=== PATIENT | male | born 1995 | race Caucasian/White ===

== ENCOUNTER 2017-05-20 20:33 | Emergency (ER) | payer OTHER ==
[2017-05-20 20:42] VITALS: BP 177/87; PULSE 110; RESP 20; TEMP 98.2
--- NOTE | 2017-05-20 21:02 | ED ---
ENT HPI - General Chief complaint: ENT Stated complaint: Esophagel Foreign Body Time Seen by Provider: 05/20/17 20:45 Source: patient, EMS Mode of arrival: EMS Limitations: no limitations - History of Present Illness Initial comments: 21-year-old male patient presents to the emergency department today for evaluation of a foreign body sensation in his throat. Patient states proximally 10 days ago he swallowed and Palak-[place] cold gel. He states a discuss tetanus throat. He states after that. He had sore scratchy throat and was having difficulty swallowing. He did present to urgent care where they set him up to have a scope done which is scheduled for next week. Patient states that since that time he's been having difficulty swallowing both food and fluids. States that today he was eating some Negrito and Ikes when they became lodged in his throat. He states he could not breath and his whole body went tingly. Patient states he was able to clear the obstruction however still feels like they are seconds throat. He states he did try to drink some water however it caused him to feel like he wanted to vomit and made him burp. He states that the area just below his Ezra's apple as where he feels the blockage. Denies any chest pain or any current shortness of breath. Patient denies any recent rash, fever, chills, abdominal pain, nausea, vomiting, diarrhea, constipation, back pain, numbness, tingling, dizziness, weakness, hematuria, dysuria, urinary urgency, urinary frequency, headache, visual changes , or any other complaints. - Related Data Home Medications Medication Instructions Recorded Confirmed No Known Home Medications [No 05/20/17 05/20/17 Known Home Medications] Allergies Allergy/AdvReac Type Severity Reaction Status Date / Time No Known Allergies Allergy Verified 05/20/17 21:02 Review of Systems ROS Statement: Those systems with pertinent positive or pertinent negative responses have been documented in the HPI. ROS Other: All systems not noted in ROS Statement are negative. Past Medical History Past Medical History: No Reported History History of Any Multi-Drug Resistant Organisms: None Reported Past Surgical History: No Surgical Hx Reported Past Psychological History: No Psychological Hx Reported Smoking Status: Current some day smoker Past Alcohol Use History: Occasional Past Drug Use History: None Reported General Exam Limitations: no limitations General appearance: alert, in no apparent distress, other (This is a well- developed, well-nourished adult male patient in no acute distress. Vital signs upon presentation are temperature 98.2F, pulse 110, respirations 20, blood pressure 177/87, pulse ox 97% on room air.) Eye exam: Present: normal appearance, PERRL, EOMI. Absent: scleral icterus, conjunctival injection, periorbital swelling ENT exam: Present: normal exam, normal oropharynx, mucous membranes moist Neck exam: Present: normal inspection, full ROM. Absent: tenderness, meningismus, lymphadenopathy Respiratory exam: Present: normal lung sounds bilaterally. Absent: respiratory distress, wheezes, rales, rhonchi, stridor Cardiovascular Exam: Present: regular rate, normal rhythm, normal heart sounds. Absent: systolic murmur, diastolic murmur, rubs, gallop, clicks GI/Abdominal exam: Present: soft, normal bowel sounds. Absent: distended, tenderness, guarding, rebound, rigid Neurological exam: Present: alert, oriented X3, CN II-XII intact Psychiatric exam: Present: normal affect, normal mood Skin exam: Present: warm, dry, intact, normal color. Absent: rash Course Vital Signs 05/20/17 20:35 Temperature 98.2 F Pulse Rate 110 H Respiratory 20 Rate Blood Pressure 177/87 O2 Sat by Pulse 97 Oximetry Medical Decision Making - Medical Decision Making 21-year-old male patient presents to the emergency department today for evaluation of foreign body sensations in the esophagus. Physical examination is unremarkable. Patient is breathing without difficulty. We did perform x- ray of the soft tissues of the neck which showed no evidence of abnormalities in the cervical soft tissues. Patient is drinking water and keeping it down without difficulty. He does have an appointment for a upper GI scope in 3-4 days. He is urged to keep this point. He was educated regarding diet modifications to liquids and very soft foods. He is instructed to return here immediately for any new, worsening, or concerning symptoms. He verbalizes understanding and agrees this plan. - Radiology Data Radiology results: report reviewed, image reviewed 2 views of the soft tissue of the neck shows epiglottis is normal. Prevertebral soft tissues appear normal. I see no sign of a foreign body. Subglottic trachea appears normal. Tonsils and adenoids appear normal. Impression by Dr. Fang shows normal cervical soft tissue exam. Disposition Clinical Impression: Sensation of foreign body in esophagus Disposition: HOME SELF-CARE Condition: Good Instructions: Esophageal Stricture (ED), Dysphagia (ED) Additional Instructions: Eat very soft foods or liquids only until your scope is completed. Do small bites at a time. Follow up with GI specialist as you have planned. Follow up with her primary care physician for recheck in 1-2 days. Return here immediately for any new, worsening, or concerning symptoms. Referrals: None,Stated [Primary Care Provider] - 1-2 days Time of Disposition: 21:35
--- NOTE | 2017-05-20 21:08 | XR ---
EXAMINATION TYPE: XR soft tissue neck DATE OF EXAM: 05/20/2017 COMPARISON: NONE HISTORY: Choking sensation TECHNIQUE: 2 views FINDINGS: Epiglottis is normal. Prevertebral soft tissues appear normal. I see no sign of a foreign b mackenzie. Subglottic trachea appears normal. Tonsils and adenoids appear normal. IMPRESSION: Normal cervical soft tissue exam.
== END 2017-05-20 21:44 | disposition home or self-care (01) ==
LOC: EC 20:33
DX: R19.8 Other specified symptoms and signs involving the digestive system and abdomen (principal); F17.200 Nicotine dependence, unspecified, uncomplicated
CPT/HCPCS: 70360; 99284

== ENCOUNTER 2017-05-26 09:27 | Day surgery (SDC) | payer OTHER ==
[2017-05-25 09:25] VITALS: BMI 33.2
[~2017-05-26 09:27] MED LIST: LACTATED RINGERS 1,000 ML IV SCH
[2017-05-26 09:48] VITALS: RESP 18; TEMP 97.9
[2017-05-26] MEDS ORDERED: LIDOCAINE 1% 20 ML VIAL (10MG/ML) FOR IV START INTRADERMA ONE (10:03)
[2017-05-26] MEDS ORDERED: PROPOFOL 10 MG/ML 20 ML VIAL IV ONE (10:16)
[2017-05-26] MEDS ORDERED: LIDOCAINE 1% INJ 10MG/ML (20 ML MDV) ONE (10:16)
--- NOTE | 2017-05-26 10:31 | P.PCN ---
Date of Procedure: 05/26/17 Procedure(s) Performed: BRIEF HISTORY: Patient is a 21-year-old, tacho olson, scheduled for an upper endoscopy as a part of evaluation of acute dysphagia for the last 2 weeks ' duration. He took Palak-[place] pills and since then he is having throat discomfort and throat irritation to exit that he is not able to eat solid food. He is hence scheduled for an upper endoscopy to evaluate further PROCEDURE PERFORMED: Esophagogastroduodenoscopy with biopsy PREOPERATIVE DIAGNOSIS: Acute dysphagia. IV sedation per anesthesia. PROCEDURE: After informed consent was obtained, the patient was brought into the endoscopy unit. IV sedation was administered by Anesthesia under continuous monitoring. Initially the Olympus GIF-140 video endoscope was inserted into the mouth. Esophagus intubated without any difficulty. It was gradually advanced into the stomach and duodenum and carefully examined. The bulb and the second part of the duodenum appeared normal. The scope at this time was withdrawn to the stomach, adequately insufflated with air, and upon careful examination, mucosa of the antrum, body, cardia and the fundus appeared normal. The scope was then withdrawn into the esophagus. Small hiatal hernia noted. The GE junction was located at 39 cm from the incisors. In the distal esophagus there was a 2- 3 mm polyp that was biopsied. The rest of the esophagus appeared normal. There were no erosions or ulcerations seen. The proximal cervical esophagus was carefully examined and appeared normal with no evidence of esophageal stricture, esophagitis or any foreign body noted. Biopsies were done from the midesophagus and the patient tolerated the procedure well. IMPRESSION: 1. 2- 3 mm polyp in the distal esophagus status post biopsy. 2. Normal proximal cervical esophagus with no evidence of esophageal foreign body, esophageal stricture or esophagitis. RECOMMENDATIONS: The findings of this examination were discussed with the patient as well as his family. He was advised to follow with the biopsy results. If he still has persistent symptoms and dysphagia was advised to follow up in office in 2-3 weeks..
[2017-05-26 11:01] VITALS: BP 164/92; PULSE 94
== END 2017-05-26 11:22 | disposition home or self-care (01) ==
LOC: ORWHC2ENDO 09:27
PROVIDERS: ATTEND Internal Medicine Gastroenterology
DX: K21.0 Gastro-esophageal reflux disease with esophagitis (principal); K22.8 Other specified diseases of esophagus; K44.9 Diaphragmatic hernia without obstruction or gangrene; F17.200 Nicotine dependence, unspecified, uncomplicated
CPT/HCPCS: 88305; 43239; J2001; J2704

== ENCOUNTER 2017-05-30 18:06 | Emergency (ER) | payer OTHER ==
[2017-05-30] MEDS ORDERED: LORazepam 1 MG TAB PO STA (18:45)
--- NOTE | 2017-05-30 19:00 | ED ---
General Adult HPI - General Chief complaint: Chest Pain Stated complaint: Arm numbness & Chest pain Time Seen by Provider: 05/30/17 18:39 Source: patient, RN notes reviewed Mode of arrival: ambulatory Limitations: no limitations - History of Present Illness Initial comments: 21-year-old male presents to the emergency department stating that yesterday he just had this odd feeling in both his arms and legs had numbness and tingling. He states that he had a little bit of chest pain during this as well. He states that about 2 weeks ago they did scope of his throat due to the fact he thought he had a pill stuck in it. They state that since then he has on-and- off episodes similar to this. He does not know if it's anxiety. He states his chest pain has since resolved. He denies any fever chills cough cold like symptoms. He states that he can feel everything touch and he can move everything and just has this odd sensation. Patient does appear anxious in the room. Family states that they did recently have a definite family as well. Patient denies any recent fever, chills, shortness of breath, back pain, abdominal pain, nausea vomiting, dysuria or hematuria, constipation or diarrhea , headaches or visual changes, or any other current symptoms. - Related Data Home Medications Medication Instructions Recorded Confirmed No Known Home Medications [No 05/20/17 05/30/17 Known Home Medications] Allergies Allergy/AdvReac Type Severity Reaction Status Date / Time No Known Allergies Allergy Verified 05/30/17 19:07 Review of Systems ROS Statement: Those systems with pertinent positive or pertinent negative responses have been documented in the HPI. ROS Other: All systems not noted in ROS Statement are negative. Past Medical History Past Medical History: Hypertension Additional Past Medical History / Comment(s): MOTHER STATES HIGH BLOOD PRESSURE BUT NO MEDICATIONS. , HAVING DIFFICULTY SWALLOWING - SEEN IN ER 05/20/17. History of Any Multi-Drug Resistant Organisms: None Reported Past Surgical History: No Surgical Hx Reported Additional Past Anesthesia/Blood Transfusion Reaction / Comment(s): NO ANESTHESIA HX. Past Psychological History: No Psychological Hx Reported Smoking Status: Current some day smoker Past Alcohol Use History: Occasional Past Drug Use History: None Reported - Past Family History Mother Family Medical History: No Reported History General Exam - General Exam Comments Initial Comments: General: The patient is awake and alert, anxious, and does not appear acutely ill. Eye: Pupils are equal, round and reactive to light, extra-ocular movements are intact; there is normal conjunctiva bilaterally. No signs of icterus. Ears, nose, mouth and throat: There are moist mucous membranes. Neck: The neck is supple, there is no tenderness. Cardiovascular: There is a regular rate and rhythm. No murmur, rub or gallop is appreciated. Respiratory: Lungs are clear to auscultation, respirations are non-labored, breath sounds are equal. No wheezes, stridor, rales, or rhonchi. Gastrointestinal: Soft, non-distended, non-tender abdomen without masses or organomegaly noted. There is no rebound or guarding present. No CVA tenderness. Bowel sounds are unremarkable. Back: There is no tenderness to palpation in the midline. There is no obvious deformity. No rashes noted. Musculoskeletal: Normal ROM, no tenderness, There is no pedal edema. There is no calf tenderness or swelling. Sensation intact. Pulses equal bilaterally 2+. Neurological: CN II-XII intact, There are no obvious motor or sensory deficits. Coordination appears grossly intact. Speech is normal. Skin: Skin is warm and dry and no rashes or lesions are noted. Psychiatric: Cooperative, appropriate mood & affect, normal judgment. Limitations: no limitations Course Vital Signs 05/30/17 05/30/17 18:24 19:05 Temperature 100.2 F H 98.6 F Pulse Rate 117 H 102 H Respiratory 20 16 Rate Blood Pressure 138/89 156/81 O2 Sat by Pulse 100 98 Oximetry EKG Findings - EKG Comments: EKG Findings:: Sinus tachycardia 103 bpm, normal axis, no atopy, no S-T depressions or elevations, Medical Decision Making - Medical Decision Making 21-year-old male presents to the emergency Department chief complaint of paresthesia, anxiety, chest pain yesterday. This time EKG and chest x-ray reviewed and negative. Patient is having some improvement of symptoms with medication. This time we discussed anxiety we also discussed the could be other etiologies and the need to follow-up with their family care doctor. Patient family stated the Berry management this plan. All questions have been answered. At this time the patient will be discharged. - Radiology Data Radiology results: report reviewed, image reviewed Disposition Clinical Impression: Anxiety, Atypical chest pain, Paresthesia Disposition: HOME SELF-CARE Condition: Stable Instructions: Anxiety (ED) Additional Instructions: Please use medication as discussed. Please follow up with family doctor if symptoms have not improved over the next two days. Please return to the emergency room if your symptoms increase or worsen or for any other concerns. Referrals: Phyllis Paris MD [Primary Care Provider] - 1-2 days Time of Disposition: 19:59
[2017-05-30 19:08] VITALS: TEMP 98.6
--- NOTE | 2017-05-30 19:26 | XR ---
EXAMINATION: XR chest 2V DATE AND TIME: 05/30/2017 7:19 PM ORDERING PROVIDER: Lesly Reyes CLINICAL INDICATION: cough; chest pain with bilateral arm numbness and panic attacks TECHNIQUE: PA and lateral COMPARISON: None. DESCRIPTION: The lungs are clear. The pleural spaces are negative. The cardiac silhouette is not enlarged. The mediastinal and pleural silhouettes are unremarkable. The skeletal structures are intact without focal findings. The soft tissues are unremarkable. IMPRESSION: NO ACUTE PROCESS.
[2017-05-30 20:28] VITALS: BP 155/79; PULSE 92; RESP 18
== END 2017-05-30 20:28 | disposition home or self-care (01) ==
LOC: EC 18:06
DX: F41.9 Anxiety disorder, unspecified (principal); R20.2 Paresthesia of skin; R07.89 Other chest pain; F17.200 Nicotine dependence, unspecified, uncomplicated
CPT/HCPCS: 71046; 93005; 99285

== ENCOUNTER → 2017-06-22 | Outpatient (CLI) | payer OTHER ==
--- NOTE | 2017-06-22 22:03 | MR ---
EXAMINATION TYPE: MR brain wo con DATE OF EXAM: 06/22/2017 9:57 PM COMPARISON: NONE HISTORY: Difficulty swallowing, tremors Multiplanar and multispin-echo imaging of the brain was performed . The ventricles, basal cisterns and sulci overlying the cerebral convexities are within normal limits. There is no evidence for midline shift or mass effect. Acute intracranial hemorrhage or extra-axial collection is not evident. The brain parenchyma reveals no abnormal increased signal. No acute edema is identified. Chronic paranasal sinusitis. Mastoids are well-aerated. IMPRESSION: Unremarkable MRI of the brain. Chronic paranasal sinusitis.
== END | disposition home or self-care (01) ==
LOC: RADMRIMAIN 21:33
PROVIDERS: ATTEND Family Medicine
DX: R25.1 Tremor, unspecified (principal)
CPT/HCPCS: 70551

== ENCOUNTER 2018-07-12 07:17 | Emergency (ER) | payer OTHER ==
[2018-07-12] MEDS ORDERED: SODIUM CHLORIDE 0.9% 500 ML 500 ML IV STA (07:43)
[2018-07-12] MEDS ORDERED: ONDANSETRON 4 MG/2 ML VIAL IVP STA (07:43)
[2018-07-12 08:02] LABS: Basophils % (A) 0 %; Eosinophils # (A) 0.3 k/uL (0-0.7); Eosinophils % (A) 3 %; HCT 43.1 % (39.0-53.0); HGB 14.4 gm/dL (13.0-17.5); Lymphocytes # (A) 1.7 k/uL (1.0-4.8); Lymphocytes % (A) 18 %; MCHC 33.4 g/dL (31.0-37.0); MCV 89.9 fL (80.0-100.0); Mean Platelet Volume 7.5; Monocytes # (A) 0.4 k/uL (0-1.0); Monocytes % (A) 5 %; Neutrophils % (A) 74 %; Platelet Count 214 k/uL (150-450); RDW 13.1 % (11.5-15.5); WBC 9.5 k/uL (3.8-10.6)
--- NOTE | 2018-07-12 08:02 | ED ---
General Adult HPI - General Chief complaint: Abdominal Pain Stated complaint: Abd Pain Rt Side Time Seen by Provider: 07/12/18 07:30 Source: patient, RN notes reviewed Mode of arrival: ambulatory - History of Present Illness Initial comments: This is a 22-year-old male who presents emergency Department complaining of right upper quadrant abdominal pain that started at 5 AM. In the past the patient stated he is been told he has a gallbladder problem but he has never followed up for. Patient states he is nauseated but has not vomited. Patient denies any fever or chills. Patient denies any radiation of the pain. Patient denies any chest pain difficulty breathing first breath. Patient denies any diarrhea. - Related Data Previous Rx's Medication Instructions Recorded Ibuprofen [Motrin] 600 mg PO Q6HR PRN #20 tab 07/12/18 Allergies Allergy/AdvReac Type Severity Reaction Status Date / Time No Known Allergies Allergy Verified 07/12/18 07:52 Review of Systems ROS Statement: Those systems with pertinent positive or pertinent negative responses have been documented in the HPI. ROS Other: All systems not noted in ROS Statement are negative. Past Medical History Past Medical History: Hypertension Additional Past Medical History / Comment(s): MOTHER STATES HIGH BLOOD PRESSURE BUT NO MEDICATIONS. , HAVING DIFFICULTY SWALLOWING - SEEN IN ER 05/20/17. History of Any Multi-Drug Resistant Organisms: None Reported Past Surgical History: No Surgical Hx Reported Additional Past Anesthesia/Blood Transfusion Reaction / Comment(s): NO ANESTHESIA HX. Past Psychological History: No Psychological Hx Reported Smoking Status: Current some day smoker Past Alcohol Use History: Occasional Past Drug Use History: Marijuana - Past Family History Mother Family Medical History: No Reported History General Exam - General Exam Comments Initial Comments: GENERAL: Patient is well-developed and well-nourished. Patient is nontoxic and well- hydrated and is in mild distress. ENT: Neck is soft and supple. No significant lymphadenopathy is noted. Oropharynx is clear. Moist mucous membranes. Neck has full range of motion without eliciting any pain. EYES: The sclera were anicteric and conjunctiva were pink and moist. Extraocular movements were intact and pupils were equal round and reactive to light. Eyelids were unremarkable. PULMONARY: Unlabored respirations. Good breath sounds bilaterally. No audible rales rhonchi or wheezing was noted. CARDIOVASCULAR: There is a regular rate and rhythm without any murmurs gallops or rubs. ABDOMEN: Patient has right upper quadrant abdominal pain but no rebound. SKIN: Skin is clear with no lesions or rashes and otherwise unremarkable. NEUROLOGIC: Patient is alert and oriented x3. Cranial nerves II through XII are grossly intact. Motor and sensory are also intact. Normal speech, volume and content. Symmetrical smile. MUSCULOSKELETAL: Normal extremities with adequate strength and full range of motion. No lower extremity swelling or edema. No calf tenderness. LYMPHATICS: No significant lymphadenopathy is noted PSYCHIATRIC: Normal psychiatric evaluation. Course Vital Signs 07/12/18 07:30 Temperature 97.9 F Pulse Rate 78 Respiratory 22 Rate Blood Pressure 138/84 O2 Sat by Pulse 100 Oximetry Medical Decision Making - Medical Decision Making Back to reevaluate the patient he was no longer nauseated and his right upper quadrant pain was very minimal on palpation only. Patient states sitting here he has no pain. Patient states to me that he thinks he might of pulled a muscle yesterday. - Lab Data Result diagrams: 07/12/18 07:50 07/12/18 07:50 Lab Results 07/12/18 07/12/18 Range/Units 07:50 07:50 WBC 9.5 (3.8-10.6) k/uL RBC 4.80 (4.30-5.90) m/uL Hgb 14.4 (13.0-17.5) gm/dL Hct 43.1 (39.0-53.0) % MCV 89.9 (80.0-100.0) fL MCH 30.0 (25.0-35.0) pg MCHC 33.4 (31.0-37.0) g/dL RDW 13.1 (11.5-15.5) % Plt Count 214 (150-450) k/uL Neutrophils % 74 % Lymphocytes % 18 % Monocytes % 5 % Eosinophils % 3 % Basophils % 0 % Neutrophils # 7.0 (1.3-7.7) k/uL Lymphocytes # 1.7 (1.0-4.8) k/uL Monocytes # 0.4 (0-1.0) k/uL Eosinophils # 0.3 (0-0.7) k/uL Basophils # 0.0 (0-0.2) k/uL Sodium 142 (137-145) mmol/L Potassium 4.1 (3.5-5.1) mmol/L Chloride 105 (98-107) mmol/L Carbon Dioxide 24 (22-30) mmol/L Anion Gap 13 mmol/L BUN 9 (9-20) mg/dL Creatinine 0.91 (0.66-1.25) mg/dL Est GFR (CKD-EPI)AfAm >90 (>60 ml/min/1.73 sqM) Est GFR (CKD-EPI)NonAf >90 (>60 ml/min/1.73 sqM) Glucose 109 H (74-99) mg/dL Calcium 10.0 (8.4-10.2) mg/dL Total Bilirubin 0.6 (0.2-1.3) mg/dL AST 33 (17-59) U/L ALT 57 (21-72) U/L Alkaline Phosphatase 45 (38-126) U/L Total Protein 7.9 (6.3-8.2) g/dL Albumin 5.1 H (3.5-5.0) g/dL Amylase 46 (30-110) U/L Lipase 78 (23-300) U/L Disposition Clinical Impression: Abdominal pain Disposition: HOME SELF-CARE Instructions (If sedation given, give patient instructions): Abdominal Pain (ED) Prescriptions: Ibuprofen [Motrin] 600 mg PO Q6HR PRN #20 tab PRN Reason: For pain Is patient prescribed a controlled substance at d/c from ED?: No Referrals: Phyllis Paris MD [Primary Care Provider] - 1-2 days Time of Disposition: 09:09
[2018-07-12 08:11] LABS: ALT 57 U/L (21-72); AST 33 U/L (17-59); Albumin 5.1 g/dL (3.5-5.0); Alkaline Phosphatase 45 U/L (38-126); Amylase 46 U/L (30-110); Anion Gap 13 mmol/L; Blood Urea Nitrogen 9 mg/dL (9-20); Carbon Dioxide 24 mmol/L (22-30); Chloride 105 mmol/L (98-107); Glucose 109 mg/dL (74-99); Lipase 78 U/L (23-300); Potassium 4.1 mmol/L (3.5-5.1); Sodium 142 mmol/L (137-145); Total Bilirubin 0.6 mg/dL (0.2-1.3); Total Protein 7.9 g/dL (6.3-8.2)
--- NOTE | 2018-07-12 08:49 | US ---
EXAMINATION TYPE: US gallbladder DATE OF EXAM: 07/12/2018 COMPARISON: NONE CLINICAL HISTORY: Pain. RUQ pain, NPO EXAM MEASUREMENTS: Liver Length: 17.4 cm Gallbladder Wall: cm CBD: 0.5 cm Right Kidney: 11.6 x 4.9 x 5.4 cm Pancreas: body and tail not well visualized due to overlying bowel gas Liver: wnl Gallbladder: wnl, fold seen LLD Evidence for sonographic Real's sign: neg CBD: limited visualization due to overlying bowel gas Right Kidney: Medial anechoic lesion seen at hilum - 1.0 x 1.2 cm IMPRESSION: 1. Parapelvic cyst right kidney.
[2018-07-12] MEDS ORDERED: KETOROLAC 60 MG/2 ML VIAL IVP STA (09:08)
[2018-07-12 10:06] VITALS: BP 139/85; PULSE 71; RESP 18; TEMP 97
== END 2018-07-12 10:06 | disposition home or self-care (01) ==
LOC: EC 07:17
DX: R10.11 Right upper quadrant pain (principal); R11.0 Nausea; F17.200 Nicotine dependence, unspecified, uncomplicated
CPT/HCPCS: 36415; 80053; 82150; 83690; 85025; 76705; 99284; 96374; 96375; 96361; J2405; J1885

== ENCOUNTER 2019-09-29 23:21 | Emergency (ER) | payer OTHER ==
[2019-09-29 23:37] VITALS: BP 130/80; PULSE 90; RESP 16; TEMP 99.1
[2019-09-30] MEDS ORDERED: SULFAMETH-TMP DS STARTER PACK 2 TAB BTL PO STA (00:16)
[2019-09-30] MEDS ORDERED: IBUPROFEN 600 MG STARTER PACK 4 TAB BTL PO STA (00:17)
[2019-09-30] MEDS ORDERED: ACET/COD 300 MG/30 MG STARTER PACK 6 TAB BTL PO STA (00:17)
--- NOTE | 2019-09-30 00:18 | ED ---
Wound/Laceration HPI - General Chief Complaint: Wound/Laceration Stated Complaint: bleeding Time Seen by Provider: 09/29/19 23:41 Source: patient Mode of arrival: ambulatory Limitations: no limitations - History of Present Illness Initial Comments: 23-year-old male patient presents to the emergency department today for evaluation of pain and bleeding from a wound on his buttocks. Patient states he's had the area for the last couple of weeks. States that today he noticed blood coming from it. States the area is tender to touch. Denies any purulent drainage. Denies fever or chills. Denies any difficulty with bowel movements or urination. Denies history of diabetes or IV drug use. Patient denies any recent rash, cough, shortness of breath, chest pain, abdominal pain, nausea, vomiting, diarrhea, constipation, back pain, numbness, tingling, dizziness, weakness, hematuria, dysuria, urinary urgency, urinary frequency, headache, visual changes, or any other complaints. - Related Data Previous Rx's Medication Instructions Recorded Ibuprofen [Motrin] 600 mg PO Q6HR PRN #20 tab 07/12/18 Ibuprofen [Motrin] 600 mg PO Q8HR PRN #30 tab 09/30/19 Sulfamethoxazole/Trimethoprim 1 each PO BID #20 tablet 09/30/19 [Bactrim DS 800-160 mg] Allergies Allergy/AdvReac Type Severity Reaction Status Date / Time No Known Allergies Allergy Verified 09/29/19 23:37 Review of Systems ROS Statement: Those systems with pertinent positive or pertinent negative responses have been documented in the HPI. ROS Other: All systems not noted in ROS Statement are negative. Past Medical History Past Medical History: Hypertension Additional Past Medical History / Comment(s): MOTHER STATES HIGH BLOOD PRESSURE BUT NO MEDICATIONS. , HAVING DIFFICULTY SWALLOWING - SEEN IN ER 05/20/17. History of Any Multi-Drug Resistant Organisms: None Reported Past Surgical History: No Surgical Hx Reported Additional Past Anesthesia/Blood Transfusion Reaction / Comment(s): NO ANESTHESIA HX. Past Psychological History: No Psychological Hx Reported Smoking Status: Current some day smoker Past Alcohol Use History: Occasional Past Drug Use History: Marijuana - Past Family History Mother Family Medical History: No Reported History General Exam Limitations: no limitations General appearance: alert, in no apparent distress, other (This is a well- developed, well-nourished adult male patient in no acute distress. Vital signs upon presentation are temperature 99.1F, pulse 90, respirations 16, blood pressure 130/80, pulse ox 99% on room air.) Respiratory exam: Present: normal lung sounds bilaterally. Absent: respiratory distress, wheezes, rales, rhonchi, stridor Cardiovascular Exam: Present: regular rate, normal rhythm, normal heart sounds. Absent: systolic murmur, diastolic murmur, rubs, gallop, clicks GI/Abdominal exam: Present: soft, normal bowel sounds. Absent: distended, tenderness, guarding, rebound, rigid exam: Present: other (There is small area of induration with central opening, draining pus and blood in the gluteal cleft approximately 5 cm from the anus. There is no perianal tenderness. ) Neurological exam: Present: alert, oriented X3, CN II-XII intact Psychiatric exam: Present: normal affect, normal mood Skin exam: Present: warm, dry, intact, normal color. Absent: rash Course Vital Signs 09/29/19 23:33 Temperature 99.1 F Pulse Rate 90 Respiratory 16 Rate Blood Pressure 130/80 O2 Sat by Pulse 99 Oximetry Medical Decision Making - Medical Decision Making 23-year-old male patient presents to the emergency department today for ev aluation of bleeding wound to the buttocks. Physical examination did reveal a small area of induration and bleeding in the gluteal cleft about 5 cm some the anus. There does appear to be drainage of pus as well. There is no perianal tenderness. He is afebrile. We will start Bactrim. He is given pain medication. He is instructed to do warm sitz baths to promote drainage. He is instructed to follow-up with his primary care physician for recheck in 1-2 days. Return parameters were discussed in detail. He verbalizes understanding and agrees with this plan. Disposition Clinical Impression: Abscess, gluteal cleft Disposition: HOME SELF-CARE Condition: Good Instructions (If sedation given, give patient instructions): Abscess (ED) Additional Instructions: Do warm sitz bath, put warm water in the tub and sit for at least 20 minutes. Complete antibiotic prescription and full. Follow-up with your primary care physician for recheck in 1-2 days. Return to the emergency department immediately for any new, worsening, or concerning symptoms. Prescriptions: Sulfamethoxazole/Trimethoprim [Bactrim DS 800-160 mg] 1 each PO BID #20 tablet Ibuprofen [Motrin] 600 mg PO Q8HR PRN #30 tab PRN Reason: Pain Is patient prescribed a controlled substance at d/c from ED?: No Referrals: Phyllis Paris MD [Primary Care Provider] - 1-2 days Time of Disposition: 00:18
== END 2019-09-30 00:50 | disposition home or self-care (01) ==
LOC: EC 23:21
DX: L02.31 Cutaneous abscess of buttock (principal); F17.200 Nicotine dependence, unspecified, uncomplicated
CPT/HCPCS: 87070; 87205; 99283

== ENCOUNTER 2019-10-03 18:36 | Emergency (ER) | payer OTHER ==
[2019-10-03 18:48] VITALS: RESP 18
[2019-10-03 19:46] LABS: ALT 25 U/L (4-49); AST 28 U/L (17-59); African American GFR (CKD) >90 (>60 ml/min/1.73 sqM); Albumin 5.1 g/dL (3.5-5.0); Alkaline Phosphatase 51 U/L (38-126); Anion Gap 11 mmol/L; Basophils % (A) 0 %; Blood Urea Nitrogen 9 mg/dL (9-20); Calcium 9.7 mg/dL (8.4-10.2); Carbon Dioxide 23 mmol/L (22-30); Chloride 105 mmol/L (98-107); Eosinophils # (A) 0.4 k/uL (0-0.7); Eosinophils % (A) 4 %; Glucose 116 mg/dL (74-99); HCT 43.4 % (39.0-53.0); HGB 14.4 gm/dL (13.0-17.5); Lipase 120 U/L (23-300); Lymphocytes # (A) 1.9 k/uL (1.0-4.8); Lymphocytes % (A) 20 %; MCH 31.9 pg (25.0-35.0); MCHC 33.2 g/dL (31.0-37.0); MCV 95.9 fL (80.0-100.0); Mean Platelet Volume 8.2; Monocytes # (A) 0.4 k/uL (0-1.0); Monocytes % (A) 4 %; Neutrophils # (A) 6.6 k/uL (1.3-7.7); Neutrophils % (A) 71 %; Non-African American GFR(CKD) >90 (>60 ml/min/1.73 sqM); Platelet Count 201 k/uL (150-450); RBC 4.52 m/uL (4.30-5.90); RDW 12.4 % (11.5-15.5); Sodium 139 mmol/L (137-145); Total Bilirubin 0.5 mg/dL (0.2-1.3); Total Protein 7.9 g/dL (6.3-8.2); WBC 9.4 k/uL (3.8-10.6)
--- NOTE | 2019-10-03 20:24 | ED ---
General Adult HPI - General Chief complaint: Recheck/Abnormal Lab/Rx Stated complaint: Urogential Time Seen by Provider: 10/03/19 18:56 Source: patient, RN notes reviewed, old records reviewed Mode of arrival: ambulatory Limitations: no limitations - History of Present Illness Initial comments: 23-year-old male patient with a chief complaint of rectal pain. Patient reports that he has history of hemorrhoids however today and he states that he looked down and look like his insides are coming out from his rectum. Reports that since he got to the hospital it has been normal. Denies any other complaints. Reports that he was in the hospital a few days ago for a pilonidal abscess which was drained and this has entirely resolved. Systemic: Pt denies fatigue, fever/chills, rash. Pt denies weakness, night sweats, weight loss. Neuro: Pt denies headache, visual disturbances, syncope or pre-syncope. HEENT: Pt denies ocular discharge or irritation, otalgia, rhinorrhea, pharyngitis or notable lymphadenopathy. Cardiopulmonary: Pt denies chest pain, SOB, heart palpitations, dyspnea on exertion. Abdominal/GI: Pt denies abdominal pain, n/v/d. : Pt denies dysuria, burning w/ urination, frequency/urgency. Denies new onset urinary or bowel incontinence. MSK: Pt denies myalgia, loss of strength or function in extremities. Neuro: Pt denies new onset weakness, paresthesias. - Related Data Previous Rx's Medication Instructions Recorded Ibuprofen [Motrin] 600 mg PO Q6HR PRN #20 tab 07/12/18 Ibuprofen [Motrin] 600 mg PO Q8HR PRN #30 tab 09/30/19 Sulfamethoxazole/Trimethoprim 1 each PO BID #20 tablet 09/30/19 [Bactrim DS 800-160 mg] Allergies Allergy/AdvReac Type Severity Reaction Status Date / Time No Known Allergies Allergy Verified 09/29/19 23:37 Review of Systems ROS Statement: Those systems with pertinent positive or pertinent negative responses have been documented in the HPI. ROS Other: All systems not noted in ROS Statement are negative. Past Medical History Past Medical History: Hypertension Additional Past Medical History / Comment(s): MOTHER STATES HIGH BLOOD PRESSURE BUT NO MEDICATIONS. , HAVING DIFFICULTY SWALLOWING - SEEN IN ER 05/20/17. History of Any Multi-Drug Resistant Organisms: None Reported Past Surgical History: No Surgical Hx Reported Additional Past Anesthesia/Blood Transfusion Reaction / Comment(s): NO ANESTHESIA HX. Past Psychological History: No Psychological Hx Reported Smoking Status: Current some day smoker Past Alcohol Use History: Occasional Past Drug Use History: Marijuana - Past Family History Mother Family Medical History: No Reported History General Exam - General Exam Comments Initial Comments: Constitutional: NAD, AOX3, Pt has pleasant affect. HEENT: NC/AT, trachea midline, neck supple, no lymphadenopathy. External ears appear normal, without discharge. Eyes PERRLA, EOM intact. There is no scleral icterus. No pallor noted. Cardiopulmonary: RRR, no murmurs, rubs or gallops, no JVD noted. Lungs CTAB in anterior and posterior wilkinson. No peripheral edema. Abdominal exam: Abdomen soft and non-distended. Abdomen non-tender to palpation in all 4 quadrants. Bowel sounds active in LLQ. No hepatosplenomegaly. No ecchymosis Neuro: CN II-XII grossly intact. No nuchal rigidity. No raccon eyes, no osorio sign, no hemotympanum. No cervical spinal tenderness. MSK: . Full active ROM in upper and lower extremities, 5/5 stregnth. Rectal: External hemorrhoid noted nonthrombosed. No prolapse of rectum. Internal rectal exam was performed. No large internal hemorrhoids are noted. No abscess or drainage. Limitations: no limitations Course Vital Signs 10/03/19 18:46 Temperature 98.6 F Pulse Rate 103 H Respiratory 18 Rate Blood Pressure 143/93 O2 Sat by Pulse 96 Oximetry Medical Decision Making - Medical Decision Making 23-year-old male patient with a chief complaint of rectal pain. Patient reports that he has history of hemorrhoids however today and he states that he looked down and look like his insides are coming out from his rectum. Reports that since he got to the hospital it has been normal. Denies any other complaints. Reports that he was in the hospital a few days ago for a pilonidal abscess which was drained and this has entirely resolved. Patient vital signs are stable, physical exam displayed external hemorrhoid. Laboratory investigations are unremarkable. Patient will be discharged to follow-up with primary care David s be given Gen. surgery referral. Return to ER if condition worsens. Case discussed with Dr. Balderrama. - Lab Data Result diagrams: 10/03/19 19:05 10/03/19 19:05 Lab Results 10/03/19 10/03/19 10/03/19 Range/Units 19:05 19:05 19:05 WBC 9.4 (3.8-10.6) k/uL RBC 4.52 (4.30-5.90) m/uL Hgb 14.4 (13.0-17.5) gm/dL Hct 43.4 (39.0-53.0) % MCV 95.9 (80.0-100.0) fL MCH 31.9 (25.0-35.0) pg MCHC 33.2 (31.0-37.0) g/dL RDW 12.4 (11.5-15.5) % Plt Count 201 (150-450) k/uL Neutrophils % 71 % Lymphocytes % 20 % Monocytes % 4 % Eosinophils % 4 % Basophils % 0 % Neutrophils # 6.6 (1.3-7.7) k/uL Lymphocytes # 1.9 (1.0-4.8) k/uL Monocytes # 0.4 (0-1.0) k/uL Eosinophils # 0.4 (0-0.7) k/uL Basophils # 0.0 (0-0.2) k/uL Sodium 139 (137-145) mmol/L Potassium 4.0 (3.5-5.1) mmol/L Chloride 105 (98-107) mmol/L Carbon Dioxide 23 (22-30) mmol/L Anion Gap 11 mmol/L BUN 9 (9-20) mg/dL Creatinine 0.97 (0.66-1.25) mg/dL Est GFR (CKD-EPI)AfAm >90 (>60 ml/min/1.73 sqM) Est GFR (CKD-EPI)NonAf >90 (>60 ml/min/1.73 sqM) Glucose 116 H (74-99) mg/dL Plasma Lactic Acid Luan 1.1 (0.7-2.0) mmol/L Calcium 9.7 (8.4-10.2) mg/dL Total Bilirubin 0.5 (0.2-1.3) mg/dL AST 28 (17-59) U/L ALT 25 (4-49) U/L Alkaline Phosphatase 51 (38-126) U/L Total Protein 7.9 (6.3-8.2) g/dL Albumin 5.1 H (3.5-5.0) g/dL Lipase 120 (23-300) U/L Disposition Clinical Impression: External hemorrhoid Disposition: HOME SELF-CARE Condition: Stable Instructions (If sedation given, give patient instructions): Hemorrhoids (ED) Additional Instructions: Follow-up with primary care provider tomorrow. Follow up with general surgery tomorrow. Return to ER if condition worsens in any way. Is patient prescribed a controlled substance at d/c from ED?: No Referrals: Phyllis Paris MD [Primary Care Provider] - 1-2 days Florida Herron MD [STAFF PHYSICIAN] - 1-2 days
[2019-10-03 20:53] VITALS: BP 144/90; PULSE 88; TEMP 97.8
== END 2019-10-03 20:54 | disposition home or self-care (01) ==
LOC: EC 18:36
DX: K64.4 Residual hemorrhoidal skin tags (principal); F17.200 Nicotine dependence, unspecified, uncomplicated
CPT/HCPCS: 36415; 80053; 83605; 83690; 85025; 99284

== ENCOUNTER → 2020-03-04 | Outpatient (CLI) | payer OTHER ==
--- NOTE | 2020-03-04 09:08 | CT ---
EXAMINATION TYPE: CT abdomen pelvis w con DATE OF EXAM: 03/04/2020 COMPARISON: None HISTORY: bowel obstruction CT DLP: 2170.2 mGycm CONTRAST: CT scan of the abdomen and pelvis is performed with Oral Contrast and with IV Contrast, patient injec blanca with 100 mL of Isovue 300. FINDINGS: LUNG BASES-: No visible nodule. No infiltrate. LIVER/GB: No calcified gallstones. No space occupying hepatic lesion. Biliary tree is of normal ca liber. PANCREAS: No inflammation. No distinct mass. SPLEEN: No splenic enlargement. No lesion seen. ADRENALS: No nodule. No thickening. KIDNEYS/BLADDER: No hydronephrosis. No nephrolithiasis. No distinct renal mass. Urinary bladder g rossly unremarkable. BOWEL: Normal appendix. Normal bowel caliber. No inflammation. Moderate fecal stasis. No obvious eric wel obstruction this time. GENITAL ORGANS: No gross abnormality. LYMPH NODES: No greater than 1cm abdominal or pelvic lymph nodes are appreciated. AORTA: No significant abnormality. OSSEOUS STRUCTURES: No significant abnormality is seen. OTHER: No significant additional abnormality is seen. IMPRESSION: 1. Moderate fecal stasis without evidence for bowel obstruction is time.
== END | disposition home or self-care (01) ==
LOC: RADCTMAIN 07:08
PROVIDERS: ATTEND Surgery Plastic and Reconstructive Surgery
DX: K59.89 Other specified functional intestinal disorders (principal)
CPT/HCPCS: 74177; Q9967

== ENCOUNTER 2020-04-17 07:27 | Day surgery (SDC) | payer OTHER ==
[2020-04-15 15:16] VITALS: BMI 32.3
--- NOTE | 2020-04-17 06:31 | P.GSHP ---
History of Present Illness H&P Date: 04/17/20 CHIEF COMPLAINT: Abdominal pain with colitis HISTORY OF PRESENT ILLNESS: The patient is a 24-year-old male who presents with abdominal pain including diarrhea and colitis. Lower endoscopy was offered for further evaluation and management. PAST MEDICAL HISTORY: Please see list. PAST SURGICAL HISTORY: Please see list. MEDICATIONS: Please see list. ALLERGIES: Please see list. SOCIAL HISTORY: No illicit drug use FAMILY HISTORY: No reports of Crohn disease or ulcerative colitis. REVIEW OF ORGAN SYSTEMS: CONSTITUTIONAL: No reports of fevers or chills. No reports of weight loss despite prior attempts. GI: Has diarrhea including change in bowel habits. PHYSICAL EXAM: VITAL SIGNS: Stable GENERAL: Well-developed pleasant male in no acute distress. HEENT: No scleral icterus. Extraocular movements grossly intact. Moist buccal mucosa. NECK: Supple without lymphadenopathy. CHEST: Unlabored respirations. Equal bilateral excursions. CARDIOVASCULAR: Regular rate and rhythm. Distal 2+ pulses. ABDOMEN: Soft, nontender, nondistended. MUSCULOSKELETAL: No clubbing, cyanosis, or edema. ASSESSMENT: 1. Colitis 2. Change in bowel habits. 3. Diarrhea PLAN: 1. Recommend proceeding with a lower endoscopy Past Medical History Past Medical History: Hypertension Additional Past Medical History / Comment(s): HAVING DIFFICULTY SWALLOWING -, NEEDS LAXATIVES IN ORDER TO HAVE A BOWEL MOVEMENT, VERTIGO History of Any Multi-Drug Resistant Organisms: None Reported Past Surgical History: No Surgical Hx Reported Additional Past Surgical History / Comment(s): EGD Past Anesthesia/Blood Transfusion Reactions: No Reported Reaction Additional Past Anesthesia/Blood Transfusion Reaction / Comment(s): NO ANESTHESIA HX. Smoking Status: Never smoker - Past Family History Mother Family Medical History: No Reported History Medications and Allergies Home Medications Medication Instructions Recorded Confirmed Type Meclizine [Antivert] 25 mg PO TID 04/15/20 04/15/20 History Metoprolol Succinate (ER) [Toprol 50 mg PO DAILY 04/15/20 04/15/20 History Xl] Polyethylene Glycol 3350 [Clearlax] 17 gm PO BID 04/15/20 04/15/20 History Allergies Allergy/AdvReac Type Severity Reaction Status Date / Time No Known Allergies Allergy Verified 04/15/20 15:06
[~2020-04-17 07:27] MED LIST changes: +LIDOCAINE 1% (10MG/ML) FOR IV START INTRADERMA PRN
[2020-04-17 07:53] VITALS: TEMP 98.5
[2020-04-17] MEDS ORDERED: PROPOFOL 10 MG/ML 20 ML VIAL IV ONE (08:48)
--- NOTE | 2020-04-17 09:22 | P.PCN ---
Date of Procedure: 04/17/20 Description of Procedure: PREOPERATIVE DIAGNOSIS: Colitis Rectal bleeding Change in bowel habits POSTOPERATIVE DIAGNOSIS: Colitis Sigmoid colon polyp Pilonidal sinus OPERATION: Colonoscopy to the cecum, ileocecal valve and appendiceal orifice. Colonoscopy with cold forceps biopsy SURGEON: Florida Herron MD. ANESTHESIA: MAC. INDICATIONS: The patient is a 24-year-old male who presents with colitis including change in bowel habits, diarrhea and rectal bleeding. Benefits and risks were described a nd informed consent was obtained. DESCRIPTION OF PROCEDURE: The patient had undergone Suprep. He had been brought into the operating room and laid in the left lateral decubitus position. After adequate intravenous sedation, the rectum was examined with 2% lidocaine jelly. Prostate was unremarkable. No external hemorrhoids were encountered. A draining 3 mm pilonidal sinus 4 cm superior to the anus was identified. The rectal tone was within normal limits. No lesions were palpated in the rectal vault. An Olympus colonoscope was advanced until the cecum, ileocecal valve and appendiceal orifice were clearly viewed. The colon was highly redundant requiring abdominal pressure from advancing the scope. Random biopsies were obtained throughout the colon for microscopic colitis. The prep was excellent. No scattered diverticulosis was encountered. A 4 mm polyp 20 cm from the anal verge was identified and removed using cold forceps. Retroflexion of the scope demonstrated grade 1 internal hemorrhoids without active bleeding or inflammation. The colon was desufflated. The patient had tolerated the procedure well. Withdrawal time was over 6 minutes. FINDINGS: Aronchick preparation quality scale 1 (1-5) Internal hemorrhoids, grade 1 No external prolapsed hemorrhoids. No arteriovenous malformations. Random biopsies were obtained throughout the colon for microscopic colitis. No scattered diverticulosis was encountered. Removal of 1 colon polyp: - A 4 mm polyp 20 cm from the anal verge, sigmoid colon was identified and removed using cold forceps. Pilonidal sinus 4 cm superior to the anus RECOMMENDATIONS: Repeat colonoscopy 10 years, 2030 Plan - Discharge Summary Discharge Rx Participant: No New Discharge Prescriptions: Continue Metoprolol Succinate (ER) [Toprol XL] 50 mg PO DAILY Meclizine [Antivert] 25 mg PO TID Polyethylene Glycol 3350 [Clearlax] 17 gm PO BID Discharge Medication List Meclizine [Antivert] 25 mg PO TID 04/15/20 [History] Metoprolol Succinate (ER) [Toprol XL] 50 mg PO DAILY 04/15/20 [History] Polyethylene Glycol 3350 [Clearlax] 17 gm PO BID 04/15/20 [History] Follow up Appointment(s)/Referral(s): Florida Herron MD [STAFF PHYSICIAN] - 04/29/20 Patient Instructions/Handouts: Colorectal Polyps (DC), Colonoscopy (DC), *Surgery [facility] - (Anesthesia) Endoscopy Discharge Instructions Activity/Diet/Wound Care/Special Instructions: Repeat colonoscopy in 10 years, 2030 Discharge Disposition: HOME SELF-CARE
[2020-04-17 09:40] VITALS: BP 140/97; PULSE 77; RESP 20
== END 2020-04-17 10:42 | disposition home or self-care (01) ==
LOC: ORWHC2ENDO 07:27
PROVIDERS: ATTEND Surgery Plastic and Reconstructive Surgery
DX: K63.5 Polyp of colon (principal); K52.9 Noninfective gastroenteritis and colitis, unspecified; Q43.8 Other specified congenital malformations of intestine; K64.0 First degree hemorrhoids; I10 Essential (primary) hypertension; K21.9 Gastro-esophageal reflux disease without esophagitis; Z79.899 Other long term (current) drug therapy
CPT/HCPCS: 88305; 45380; J2704

== ENCOUNTER 2020-10-17 21:56 | Emergency (ER) | payer OTHER ==
[2020-10-17 22:17] VITALS: RESP 18
[2020-10-17] MEDS: AMOXIC-POT CLAV 200-28.5MG/5ML 100 ML BOTTLE PO ONE (22:51)
--- NOTE | 2020-10-17 22:57 | ED ---
General Adult HPI - General Chief complaint: GI Bleed Stated complaint: hemmorhoid Time Seen by Provider: 10/17/20 22:19 Source: patient Mode of arrival: ambulatory - History of Present Illness Initial comments: 24-year-old male with history of hemorrhoid presents to emergency Department with a chief complaint of hemorrhoid. Patient reports he felt that his hemorrhoid ruptured and now he has rectal bleeding. States it is bright red. States it is difficult to sit on a chair due to the pain. This occurred about 2 hours prior to arrival. States he multiple calls near his rectum and it is bleeding. States it is red with mild pustular discharge. States she has GI related problems and is on multiple laxatives. He is seeing Dr. Hardwick for these issues. He is yet to follow up with a GI specialist. Denies fevers or chills or abdominal pain. - Related Data Home Medications Medication Instructions Recorded Confirmed Meclizine [Antivert] 25 mg PO TID 04/15/20 04/17/20 Metoprolol Succinate (ER) [Toprol 50 mg PO DAILY 04/15/20 04/17/20 XL] Polyethylene Glycol 3350 [Clearlax] 17 gm PO BID 04/15/20 04/17/20 Previous Rx's Medication Instructions Recorded Amoxic-Pot Clav 400-57Mg/5Ml 10 ml PO Q12H #200 ml 10/17/20 [Augmentin 400-57 mg/5 ml Susp] Allergies Allergy/AdvReac Type Severity Reaction Status Date / Time No Known Allergies Allergy Verified 04/17/20 07:53 Review of Systems ROS Statement: Those systems with pertinent positive or pertinent negative responses have been documented in the HPI. ROS Other: All systems not noted in ROS Statement are negative. Past Medical History Past Medical History: Hypertension Additional Past Medical History / Comment(s): HAVING DIFFICULTY SWALLOWING -, NEEDS LAXATIVES IN ORDER TO HAVE A BOWEL MOVEMENT, VERTIGO History of Any Multi-Drug Resistant Organisms: None Reported Past Surgical History: No Surgical Hx Reported Additional Past Surgical History / Comment(s): EGD Past Anesthesia/Blood Transfusion Reactions: No Reported Reaction Additional Past Anesthesia/Blood Transfusion Reaction / Comment(s): NO ANESTHESIA HX. Past Psychological History: No Psychological Hx Reported Smoking Status: Never smoker Past Alcohol Use History: None Reported Past Drug Use History: None Reported - Past Family History Mother Family Medical History: No Reported History General Exam Limitations: no limitations General appearance: alert, in no apparent distress, obese Head exam: Present: atraumatic, normocephalic, normal inspection Eye exam: Present: normal appearance, PERRL, EOMI Pupils: Present: normal accommodation ENT exam: Present: normal exam, normal oropharynx, mucous membranes moist Neck exam: Present: normal inspection, full ROM. Absent: tenderness, meningismus Respiratory exam: Present: normal lung sounds bilaterally. Absent: respiratory distress Cardiovascular Exam: Present: regular rate, normal rhythm, normal heart sounds. Absent: systolic murmur GI/Abdominal exam: Present: soft. Absent: distended, tenderness, guarding Rectal exam: Present: tenderness (Tenderness at the draining abscess site). Absent: normal inspection (Patient has a draining abscess between the coccyx and the anus. No detectable hemorrhoid), hemorrhoids Extremities exam: Present: normal inspection, full ROM Back exam: Present: normal inspection, full ROM Neurological exam: Present: alert, oriented X3 Psychiatric exam: Present: normal affect, normal mood Skin exam: Present: warm, dry, intact, normal color Course Vital Signs 10/17/20 10/17/20 22:12 23:05 Temperature 99.4 F 98.6 F Pulse Rate 130 H 113 H Respiratory 18 18 Rate Blood Pressure 159/91 134/98 O2 Sat by Pulse 98 99 Oximetry Medical Decision Making - Medical Decision Making 24-year-old male presents emergency Department with chief complaint of a ruptured hemorrhoid. On physical examination, he does not appear to have hemorrhoids. However, this appears to be a perianal abscess at o'clock. It is soft draining with bloody/pustular discharge. Patient will be started on Augmentin. I gave him gauze to replace. He will follow up with a GI specialist. Strict return parameters were thoroughly discussed with patient is worsening ago. Case discussed with physician with physician Disposition Clinical Impression: Perianal abscess Disposition: HOME SELF-CARE Condition: Stable Instructions (If sedation given, give patient instructions): Abscess (ED) Additional Instructions: Please return to the Emergency Department if symptoms worsen or any other concerns. Follow with a GI specialist. Prescriptions: Amoxic-Pot Clav 400-57Mg/5Ml [Augmentin 400-57 mg/5 ml Susp] 10 ml PO Q12H #200 ml Is patient prescribed a controlled substance at d/c from ED?: No Referrals: Phyllis Paris MD [Primary Care Provider] - 1-2 days Time of Disposition: 22:57
[2020-10-17 23:06] VITALS: BP 134/98; PULSE 113; TEMP 98.6
== END 2020-10-17 23:06 | disposition home or self-care (01) ==
LOC: EC 21:56
DX: K61.2 Anorectal abscess (principal); I10 Essential (primary) hypertension
CPT/HCPCS: 99282

== ENCOUNTER → 2021-08-13 | Outpatient (CLI) | payer OTHER ==
--- NOTE | 2021-08-13 23:05 | US ---
EXAMINATION TYPE: US renal artery duplex completa DATE OF EXAM: 08/13/2021 COMPARISON: CT abdomen and pelvis 2019 CLINICAL HISTORY: I10 ESSENTIAL HYPERTENSION. HTN MEASUREMENTS: RENAL SIZE: Rt Kidney: 11.8 x 4.3 x 5.0 cm Lt Kidney: 11.4 x 5.4 x 5.0 cm RESISTANCE INDEX Right: 0.6 Left: 0.5 RA/AO RATIO (< 3.5 ) Right: 1.5 Left: 1.3 RA VELOCITY ( < 180 cm/s) Right: 190 Left: 156 Slightly elevated velocities right proximal renal artery, otherwise study appeared wnl IMPRESSION: No convincing ultrasound evidence for hemodynamically significant focal renal artery sten osis.
== END | disposition home or self-care (01) ==
LOC: RADUSWWP 07-10 12:11
PROVIDERS: ATTEND Family Medicine
DX: I10 Essential (primary) hypertension (principal)
CPT/HCPCS: 93975

== ENCOUNTER 2021-10-07 10:25 | Emergency (ER) | payer OTHER ==
[2021-10-07 10:42] VITALS: BP 151/96; PULSE 93; RESP 16; TEMP 98.3
[2021-10-07 11:31] LABS: Appearance,Urine Clear (Clear); Bilirubin,Urine Negative (Negative); Blood,Urine Negative (Negative); Color,Urine Yellow; Glucose,Urine (UA) Negative (Negative); Ketones,Urine Negative (Negative); Leukocyte Esterase,Urine Negative (Negative); Nitrite,Urine Negative (Negative); PH, Urine 6.5 (5.0-8.0); Protein,Urine Negative (Negative); Specific Gravity,Urine 1.024 (1.001-1.035); Urobilinogen,Urine <2.0 mg/dL (<2.0)
--- NOTE | 2021-10-07 12:14 | ED ---
General Adult HPI - General Chief complaint: Urogenital Stated complaint: Male Time Seen by Provider: 10/07/21 10:48 Source: patient, RN notes reviewed Mode of arrival: ambulatory Limitations: no limitations - History of Present Illness Initial comments: This a 25-year-old male presents emergency Department chief complaint of penile pain. Patient is having increasing penile pain over the last 1 week. He states his pain and left side. States it's worse when his erection. He states he has some facial he urinates but no penile drainage or blood noted. Patient states that he no trauma she states never had any like this in the past no lesions or sores. - Related Data Home Medications Medication Instructions Recorded Confirmed Meclizine [Antivert] 25 mg PO TID 04/15/20 04/17/20 Metoprolol Succinate (ER) [Toprol 50 mg PO DAILY 04/15/20 04/17/20 XL] polyethylene glycoL 3350 [Clearlax] 17 gm PO BID 04/15/20 04/17/20 Previous Rx's Medication Instructions Recorded Amoxic-Pot Clav 400-57Mg/5Ml 10 ml PO Q12H #200 ml 10/17/20 [Augmentin 400-57 mg/5 ml Susp] Allergies Allergy/AdvReac Type Severity Reaction Status Date / Time No Known Allergies Allergy Verified 10/07/21 10:38 Review of Systems ROS Statement: Those systems with pertinent positive or pertinent negative responses have been documented in the HPI. ROS Other: All systems not noted in ROS Statement are negative. Past Medical History Past Medical History: Hypertension Additional Past Medical History / Comment(s): HAVING DIFFICULTY SWALLOWING -, NEEDS LAXATIVES IN ORDER TO HAVE A BOWEL MOVEMENT, VERTIGO History of Any Multi-Drug Resistant Organisms: None Reported Past Surgical History: No Surgical Hx Reported Additional Past Surgical History / Comment(s): EGD Past Anesthesia/Blood Transfusion Reactions: No Reported Reaction Additional Past Anesthesia/Blood Transfusion Reaction / Comment(s): NO ANESTHESIA HX. Past Psychological History: No Psychological Hx Reported Smoking Status: Never smoker Past Alcohol Use History: None Reported Past Drug Use History: Marijuana - Past Family History Mother Family Medical History: No Reported History General Exam Limitations: no limitations General appearance: alert, in no apparent distress Head exam: Present: atraumatic, normocephalic, normal inspection Eye exam: Present: normal appearance, PERRL, EOMI. Absent: scleral icterus, conjunctival injection, periorbital swelling ENT exam: Present: normal exam, mucous membranes moist Neck exam: Present: normal inspection, full ROM. Absent: tenderness, meningismus, lymphadenopathy Respiratory exam: Present: normal lung sounds bilaterally. Absent: respiratory distress, wheezes, rales, rhonchi, stridor Cardiovascular Exam: Present: regular rate, normal rhythm, normal heart sounds. Absent: systolic murmur, diastolic murmur, rubs, gallop, clicks GI/Abdominal exam: Present: soft, normal bowel sounds. Absent: distended, tenderness, guarding, rebound, rigid exam: Absent: testicular tenderness, urethral discharge, scrotal swelling, vertical testicular lie Course Vital Signs 10/07/21 10:38 Temperature 98.3 F Pulse Rate 93 Respiratory 16 Rate Blood Pressure 151/96 O2 Sat by Pulse 99 Oximetry Medical Decision Making - Medical Decision Making Urinalysis is unremarkable. Patient states she is pain with erection. Patient may have some sort of plaque formation or muscle skeletal issue. We discussed possibility of peyroine's note patient is young. Patient will follow-up with urology. - Lab Data Lab Results 10/07/21 Range/Units 11:03 Urine Color Yellow Urine Appearance Clear (Clear) Urine pH 6.5 (5.0-8.0) Ur Specific Swisher 1.024 (1.001-1.035) Urine Protein Negative (Negative) Urine Glucose (UA) Negative (Negative) Urine Ketones Negative (Negative) Urine Blood Negative (Negative) Urine Nitrite Negative (Negative) Urine Bilirubin Negative (Negative) Urine Urobilinogen <2.0 (<2.0) mg/dL Ur Leukocyte Esterase Negative (Negative) Disposition Clinical Impression: Painful penile erection, Penile pain Disposition: HOME SELF-CARE Condition: Stable Additional Instructions: Please return to the Emergency Department if symptoms worsen or any other concerns. Is patient prescribed a controlled substance at d/c from ED?: No Referrals: Phyllis Paris MD [Primary Care Provider] - 1-2 days Alec Goodwin MD [STAFF PHYSICIAN] - 1-2 days Time of Disposition: 12:14
[2021-10-08 14:56] LABS: N. gonorrhoeae,PCR Negative (Neg,Equiv); Neisseria Source Urine
== END 2021-10-07 12:23 | disposition home or self-care (01) ==
LOC: EC 10:25
DX: N48.30 Priapism, unspecified (principal); N48.89 Other specified disorders of penis; I10 Essential (primary) hypertension; F12.90 Cannabis use, unspecified, uncomplicated; Z79.899 Other long term (current) drug therapy
CPT/HCPCS: 81003; 87591; 87661; 99284

== ENCOUNTER 2021-10-13 13:38 | Observation (INO) | payer OTHER ==
[2021-10-13] MEDS ORDERED: DIPH,PERTUS(ACELL)TETVAC-LF 0.5 ML VIAL IM ONE (13:45)
[2021-10-13] MEDS ORDERED: fentaNYL (PF) 50 MCG/ML 2 ML AMP IVP PRN (13:53)
--- NOTE | 2021-10-13 14:00 | ED ---
General Adult HPI - General Source: patient, family, RN notes reviewed, old records reviewed Mode of arrival: wheelchair Limitations: no limitations <Kalyan Vincent - Last Filed: 10/13/21 14:40> <Tosha Shabazz - Last Filed: 10/13/21 16:38> <Massiel Hunter - Last Filed: 10/13/21 16:55> - General Chief complaint: Trauma Stated complaint: Fall off roof-Injured Time Seen by Provider: 10/13/21 13:45 - History of Present Illness Initial comments: 25-year-old male presents status post fall from roof. Patient fell approximately 15-20 feet onto a concrete wall. There was loss consciousness. No anticoagulation. There was head injury, injury to the anterior chest wall, abrasions throughout the extremities. Patient is complaining of predominantly upper torso and upper extremity pain although he does have pain in his bilateral knees well. This occurred about one hour prior to arrival. Family had driven the patient and came through walk in triage. Patient has a facial trauma (Kalyan Vincent) - Related Data Home Medications Medication Instructions Recorded Confirmed polyethylene glycoL 3350 [Clearlax] 17 gm PO BID 04/15/20 10/13/21 Allergies Allergy/AdvReac Type Severity Reaction Status Date / Time No Known Allergies Allergy Verified 10/13/21 13:42 Review of Systems ROS Other: All systems not noted in ROS Statement are negative. <Kalyan Vincent - Last Filed: 10/13/21 14:40> ROS Other: All systems not noted in ROS Statement are negative. <Tosha Shabazz - Last Filed: 10/13/21 16:38> ROS Other: All systems not noted in ROS Statement are negative. <Massiel Hunter - Last Filed: 10/13/21 16:55> ROS Statement: Those systems with pertinent positive or pertinent negative responses have been documented in the HPI. Past Medical History Past Medical History: Hypertension Additional Past Medical History / Comment(s): HAVING DIFFICULTY SWALLOWING -, NEEDS LAXATIVES IN ORDER TO HAVE A BOWEL MOVEMENT, VERTIGO History of Any Multi-Drug Resistant Organisms: None Reported Past Surgical History: No Surgical Hx Reported Additional Past Surgical History / Comment(s): EGD Past Anesthesia/Blood Transfusion Reactions: No Reported Reaction Additional Past Anesthesia/Blood Transfusion Reaction / Comment(s): NO ANESTHESIA HX. Past Psychological History: No Psychological Hx Reported Smoking Status: Never smoker Past Alcohol Use History: None Reported Past Drug Use History: Marijuana - Past Family History Mother Family Medical History: No Reported History <Kalyan Vincent - Last Filed: 10/13/21 14:40> General Exam General appearance: alert, in distress Head exam: Present: atraumatic Eye exam: Present: PERRL ENT exam: Present: other (Left upper lip laceration) Neck exam: Present: tenderness (Abrasion to the left anterior neck no pulsatile mass, no stridor. There is mild respiratory distress.), other (C-collar placed upon arrival) Respiratory exam: Present: respiratory distress, chest wall tenderness, decreased breath sounds, other (Linear abrasion to the right chest wall) GI/Abdominal exam: Present: soft. Absent: distended, tenderness, guarding Extremities exam: Present: tenderness, other (Bilateral knee abrasions, pain with range of motion left upper extremity). Absent: full ROM Back exam: Present: normal inspection, full ROM. Absent: tenderness, paraspinal tenderness Neurological exam: Present: alert, oriented X3, CN II-XII intact. Absent: motor sensory deficit Skin exam: Present: warm, abrasion <Kalyan Vincent - Last Filed: 10/13/21 14:40> Course <Kalyan Vincent - Last Filed: 10/13/21 14:40> Vital Signs 10/13/21 10/13/21 13:39 16:34 Temperature 98.7 F Pulse Rate 112 H 95 Respiratory 18 16 Rate Blood Pressure 138/77 132/68 O2 Sat by Pulse 100 98 Oximetry - Reevaluation(s) Reevaluation #1: 10/13/21 1500 Patient care signed out to Dr. Hunter awaiting imaging results and reevaluation. (Kalyan Vincent) EKG Findings - EKG Comments: EKG Findings:: EKG: Sinus rhythm rate of 91, GA interval 175, QRS duration 86, QTC [address] segment elevation. <Kalyan Vincent - Last Filed: 10/13/21 14:40> Procedures - Laceration Laceration #1 Consent Obtained: verbal consent Indication: laceration Site: lip Size (cm): 1 Description: linear (slightly irregular) Depth: simple, single layer, [id number] (lip with approximately 1 cm in depth ) Anesthetic Used: lidocaine 1%, with epi Anesthesia Technique: local infiltration Amount (mls): 2 Pre-repair: irrigated extensively Type of Sutures: nylon, vicryl Size of Sutures: 5-0, 6-0 Number of Sutures: 7 (6 vicryl 5-0 and 1 nylon 5-0 to exterior portion of laceration) Technique: simple, interrupted Patient Tolerated Procedure: well, no complications <Tosha Shabazz - Last Filed: 10/13/21 16:38> Medical Decision Making - Lab Data Result diagrams: 10/13/21 13:56 10/13/21 13:56 <Kalyan Vincent - Last Filed: 10/13/21 14:40> - Lab Data Result diagrams: 10/13/21 13:56 10/13/21 13:56 <Tosha Shabazz - Last Filed: 10/13/21 16:38> - Lab Data Result diagrams: 10/13/21 13:56 10/13/21 13:56 <Massiel Hunter - Last Filed: 10/13/21 16:55> - Medical Decision Making Patient was evaluated by myself. I did evaluate the patient's imaging. No identifiable injuries. His lip laceration was repaired by the nurse practitioner. We did attempt to get the patient up to ambulate. He does have a slight drop in his blood pressure feels externally nauseated and begins dry heaving. He is given a liter bolus of normal saline. As the patient remains tachycardic and nauseated I did recommends overnight observation for which the patient did agree to. Spoke with Dr. White who agreed to admit the patient (Massiel Hunter) - Lab Data Lab Results 10/13/21 10/13/21 10/13/21 Range/Units 13:56 13:56 13:56 WBC 11.2 H (3.8-10.6) k/uL RBC 4.93 (4.30-5.90) m/uL Hgb 15.3 (13.0-17.5) gm/dL Hct 45.8 (39.0-53.0) % MCV 93.0 (80.0-100.0) fL MCH 31.0 (25.0-35.0) pg MCHC 33.3 (31.0-37.0) g/dL RDW 12.3 (11.5-15.5) % Plt Count 258 (150-450) k/uL MPV 8.4 Neutrophils % 67 % Lymphocytes % 24 % Monocytes % 4 % Eosinophils % 3 % Basophils % 1 % Neutrophils # 7.6 (1.3-7.7) k/uL Lymphocytes # 2.7 (1.0-4.8) k/uL Monocytes # 0.4 (0-1.0) k/uL Eosinophils # 0.3 (0-0.7) k/uL Basophils # 0.1 (0-0.2) k/uL PT 10.3 (9.0-12.0) sec INR 0.9 (<1.2) APTT 22.4 (22.0-30.0) sec Sodium 140 (137-145) mmol/L Potassium 3.7 (3.5-5.1) mmol/L Chloride 105 (98-107) mmol/L Carbon Dioxide 18 L (22-30) mmol/L Anion Gap 17 mmol/L BUN 9 (9-20) mg/dL Creatinine 1.08 (0.66-1.25) mg/dL Est GFR (CKD-EPI)AfAm >90 (>60 ml/min/1.73 sqM) Est GFR (CKD-EPI)NonAf >90 (>60 ml/min/1.73 sqM) Glucose 135 H (74-99) mg/dL POC Glucose (mg/dL) (70-110) mg/dL POC Glu Leaf Binner ID Calcium 10.8 H (8.4-10.2) mg/dL Total Bilirubin 0.6 (0.2-1.3) mg/dL AST 35 (17-59) U/L ALT 32 (4-49) U/L Alkaline Phosphatase 68 (38-126) U/L Troponin I (0.000-0.034) ng/mL Total Protein 8.8 H (6.3-8.2) g/dL Albumin 5.5 H (3.5-5.0) g/dL Serum Alcohol <10 mg/dL Blood Type Blood Type Confirm Blood Type Recheck Bld Type Recheck Status Antibody Screen Spec Expiration Date 10/13/21 10/13/21 10/13/21 Range/Units 13:56 13:56 13:56 WBC (3.8-10.6) k/uL RBC (4.30-5.90) m/uL Hgb (13.0-17.5) gm/dL Hct (39.0-53.0) % MCV (80.0-100.0) fL MCH (25.0-35.0) pg MCHC (31.0-37.0) g/dL RDW (11.5-15.5) % Plt Count (150-450) k/uL MPV Neutrophils % % Lymphocytes % % Monocytes % % Eosinophils % % Basophils % % Neutrophils # (1.3-7.7) k/uL Lymphocytes # (1.0-4.8) k/uL Monocytes # (0-1.0) k/uL Eosinophils # (0-0.7) k/uL Basophils # (0-0.2) k/uL PT (9.0-12.0) sec INR (<1.2) APTT (22.0-30.0) sec Sodium (137-145) mmol/L Potassium (3.5-5.1) mmol/L Chloride (98-107) mmol/L Carbon Dioxide (22-30) mmol/L Anion Gap mmol/L BUN (9-20) mg/dL Creatinine (0.66-1.25) mg/dL Est GFR (CKD-EPI)AfAm (>60 ml/min/1.73 sqM) Est GFR (CKD-EPI)NonAf (>60 ml/min/1.73 sqM) Glucose (74-99) mg/dL POC Glucose (mg/dL) 146 H (70-110) mg/dL POC Glu Leaf Binner ID Aubrey, Rosibel Calcium (8.4-10.2) mg/dL Total Bilirubin (0.2-1.3) mg/dL AST (17-59) U/L ALT (4-49) U/L Alkaline Phosphatase (38-126) U/L Troponin I <0.012 (0.000-0.034) ng/mL Total Protein (6.3-8.2) g/dL Albumin (3.5-5.0) g/dL Serum Alcohol mg/dL Blood Type A Positive Blood Type Confirm Blood Type Recheck No Previous Record Bld Type Recheck Status CABO Indicated Antibody Screen NEGATIVE Spec Expiration Date 10/16/2021 - 235510/13/21 10/13/21 Range/Units 13:56 16:38 WBC (3.8-10.6) k/uL RBC (4.30-5.90) m/uL Hgb (13.0-17.5) gm/dL Hct (39.0-53.0) % MCV (80.0-100.0) fL MCH (25.0-35.0) pg MCHC (31.0-37.0) g/dL RDW (11.5-15.5) % Plt Count (150-450) k/uL MPV Neutrophils % % Lymphocytes % % Monocytes % % Eosinophils % % Basophils % % Neutrophils # (1.3-7.7) k/uL Lymphocytes # (1.0-4.8) k/uL Monocytes # (0-1.0) k/uL Eosinophils # (0-0.7) k/uL Basophils # (0-0.2) k/uL PT (9.0-12.0) sec INR (<1.2) APTT (22.0-30.0) sec Sodium (137-145) mmol/L Potassium (3.5-5.1) mmol/L Chloride (98-107) mmol/L Carbon Dioxide (22-30) mmol/L Anion Gap mmol/L BUN (9-20) mg/dL Creatinine (0.66-1.25) mg/dL Est GFR (CKD-EPI)AfAm (>60 ml/min/1.73 sqM) Est GFR (CKD-EPI)NonAf (>60 ml/min/1.73 sqM) Glucose (74-99) mg/dL POC Glucose (mg/dL) 111 H (70-110) mg/dL POC Glu Leaf Binner ID Yvonne Rg Calcium (8.4-10.2) mg/dL Total Bilirubin (0.2-1.3) mg/dL AST (17-59) U/L ALT (4-49) U/L Alkaline Phosphatase (38-126) U/L Troponin I (0.000-0.034) ng/mL Total Protein (6.3-8.2) g/dL Albumin (3.5-5.0) g/dL Serum Alcohol mg/dL Blood Type Blood Type Confirm A Positive Blood Type Recheck Bld Type Recheck Status Antibody Screen Spec Expiration Date Disposition <Kalyan Vincent Loy - Last Filed: 10/13/21 14:40> <HarikaSantosha - Last Filed: 10/13/21 16:38> Is patient prescribed a controlled substance at d/c from ED?: No Time of Disposition: 16:50 Decision to Admit Reason: Admit from EC Decision Date: 10/13/21 Decision Time: 16:50 <Massiel Hunter - Last Filed: 10/13/21 16:55> Clinical Impression: Fall from height of greater than 3 feet, Abrasion of knee, bilateral, Chest abrasion, Blunt chest trauma, Blunt abdominal trauma, Lip laceration Disposition: ADMITTED IP TO THIS HOSP Condition: Stable Referrals: Phyllis Paris MD [Primary Care Provider] - 1-2 days
[2021-10-13 14:04] LABS: Glucose,Whole Blood 146 mg/dL (70-110)
[2021-10-13] MEDS ORDERED: fentaNYL (PF) 50 MCG/ML 2 ML AMP IVP ONE (14:11)
[2021-10-13 14:16] LABS: Basophils # (A) 0.1 k/uL (0-0.2); Basophils % (A) 1 %; Eosinophils # (A) 0.3 k/uL (0-0.7); Eosinophils % (A) 3 %; HCT 45.8 % (39.0-53.0); HGB 15.3 gm/dL (13.0-17.5); Lymphocytes # (A) 2.7 k/uL (1.0-4.8); Lymphocytes % (A) 24 %; MCHC 33.3 g/dL (31.0-37.0); Mean Platelet Volume 8.4; Monocytes # (A) 0.4 k/uL (0-1.0); Monocytes % (A) 4 %; Neutrophils # (A) 7.6 k/uL (1.3-7.7); Neutrophils % (A) 67 %; Platelet Count 258 k/uL (150-450); RBC 4.93 m/uL (4.30-5.90); RDW 12.3 % (11.5-15.5); WBC 11.2 k/uL (3.8-10.6)
--- NOTE | 2021-10-13 14:17 | XR ---
EXAMINATION TYPE: XR pelvis AP view DATE OF EXAM: 10/13/2021 COMPARISON: None HISTORY: Fall from roof TECHNIQUE: AP pelvis FINDINGS: Femoral heads articulate with the acetabulum. Symphysis pubis and sacroiliac joints are nor mal. No acute fractures are evident. IMPRESSION: 1. Normal AP pelvis
--- NOTE | 2021-10-13 14:18 | XR ---
EXAMINATION TYPE: XR chest 1V portable DATE OF EXAM: 10/13/2021 COMPARISON: 05/30/2017 INDICATION: Trauma, fall TECHNIQUE: Single frontal view of the chest is obtained. FINDINGS: The heart size is normal. The pulmonary vasculature is normal. The lungs are clear. Mediastinum appear normal. No pneumothorax is evident. No displaced rib fractur es are identified. IMPRESSION: 1. No acute posttraumatic changes.
[2021-10-13] MEDS ORDERED: HYDROmorphone 0.5 MG/0.5 ML SYRINGE IVP STA (14:34)
[2021-10-13 14:35] LABS: ALT 32 U/L (4-49); AST 35 U/L (17-59); African American GFR (CKD) >90 (>60 ml/min/1.73 sqM); Albumin 5.5 g/dL (3.5-5.0); Alcohol <10 mg/dL; Alkaline Phosphatase 68 U/L (38-126); Anion Gap 17 mmol/L; Blood Urea Nitrogen 9 mg/dL (9-20); Calcium 10.8 mg/dL (8.4-10.2); Carbon Dioxide 18 mmol/L (22-30); Chloride 105 mmol/L (98-107); Glucose 135 mg/dL (74-99); Non-African American GFR(CKD) >90 (>60 ml/min/1.73 sqM); Potassium 3.7 mmol/L (3.5-5.1); Sodium 140 mmol/L (137-145); Total Bilirubin 0.6 mg/dL (0.2-1.3); Total Protein 8.8 g/dL (6.3-8.2)
[2021-10-13 14:43] LABS: INR 0.9 (<1.2); Partial Thromboplastin Time 22.4 sec (22.0-30.0); Prothrombin Time 10.3 sec (9.0-12.0)
--- NOTE | 2021-10-13 14:43 | CT ---
EXAMINATION TYPE: CT brain cspine wo con CT DLP: 5746.4 mGycm, Automated exposure control for dose reduction was used. DATE OF EXAM: 10/13/2021 2:34 PM COMPARISON: None.. CLINICAL INDICATION:Male, 25 years old with history of trauma; Fell off ladder TECHNIQUE: Brain: Multiple axial CT images of the brain were obtained without IV contrast. Cspine: Axial CT images from the skull base to the inferior aspect of T2 we obtained without intraven ous contrast. Coronal and sagittal reformatted images were also reviewed. FINDINGS: Brain: Extra-axial spaces: No abnormal extra-axial fluid collections. Ventricular system: Within normal limits Cerebral parenchyma: No acute intraparenchymal hemorrhage or mass effect. The stewart-white junction is well differentiated. Cerebellum: Unremarkable. Mass effect: No evidence of midline shift. Intracranial vasculature: unremarkable Soft tissues: Normal. Calvarium/osseous structures: No depressed skull fracture. Paranasal sinuses and mastoid air cells: Clear. Visualized orbits: Orbital contents are intact. Cervical spine: Fracture: None. Osseous structures: Unremarkable Vertebral alignment: Within normal limits. Spinal canal/Neural Foramina: No evidence of significant spinal canal narrowing. No evidence for sign ificant neural foraminal stenosis. Neck soft tissues: Prevertebral soft tissues are within normal limits. Other: The airway is patent. The lung apices are clear. IMPRESSION: 1. No acute intracranial process. 2. No evidence of cervical spine fracture.
--- NOTE | 2021-10-13 14:45 | CT ---
EXAMINATION TYPE: CT facial bones wo con CT DLP: 5746.4 total mGycm, Automated exposure control for dose reduction was used. DATE OF EXAM: 10/13/2021 2:35 PM COMPARISON: CT head same day. CLINICAL INDICATION:Male, 25 years old with history of trauma, Fell off ladder TECHNIQUE: Multiple unenhanced axial CT images were obtained of the facial bones soft tissue and bone windows. Coronal, axial and sagittal reformatted images were also provided in soft tissue and bone windows and submitted for interpretation. Additional 3-D reformatted images were obtained on a [employer] workstation. FINDINGS: There is no evidence of fracture, subluxation, dislocation, or significant soft tissue swelling. The orbital contents are unremarkable.The temporal-mandibular joints appear symmetric. The visualized por tion of the paranasal sinuses demonstrate scattered mucosal thickening. IMPRESSION: No evidence of acute fracture.
--- NOTE | 2021-10-13 14:48 | CT ---
EXAMINATION TYPE: CT ChestAbdPelvis w con CT DLP: 5746.4 mGycm, Automated exposure control for dose reduction was used. DATE OF EXAM: 10/13/2021 2:34 PM COMPARISON: None. CLINICAL INDICATION:Male, 25 years old with history of trauma, Fell off ladder Technique: Multiple axial images of the chest, abdomen, and pelvis were obtained. Two-dimensional cor onal and sagittal reconstructions were obtained. Contrast used:100 ML mL of Isovue 300 with IV Contrast, Oral contrast used: without Oral Contrast Findings: CHEST: LUNGS/ PLEURA: The lung parenchyma appears unremarkable. AIRWAY: Patent and unremarkable. HEART: Size within normal limits. MEDIASTINUM: No gross evidence of adenopathy. VASCULATURE: No aortic aneurysm. MUSCULOSKELETAL: No acute osseous abnormalities. SOFT TISSUES/LYMPH NODES: Unremarkable. LOWER NECK: No significant findings. ABDOMEN: ABDOMEN LIVER: Unremarkable GALLBLADDER AND BILE DUCTS: Unremarkable. PANCREAS: Unremarkable. SPLEEN: Unremarkable. ADRENAL GLANDS: Unremarkable. KIDNEYS AND URETERS: No evidence of hydronephrosis or renal calculus. The ureters are unremarkable. PELVIS BLADDER: Unremarkable REPRODUCTIVE: Unremarkable. ABDOMEN & PELVIS STOMACH AND BOWEL: No evidence of bowel obstruction. PERITONEUM: No evidence of pneumoperitoneum or free fluid. VASCULATURE: No evidence of aortic aneurysm. MUSCULOSKELETAL: No acute osseous abnormalities LYMPH NODES: No gross evidence for lymphadenopathy. SOFT TISSUE/ABDOMINAL WALL: Unremarkable IMPRESSION: No evidence for fracture or acute thoracic/abdominal/pelvic process.
[2021-10-13] MEDS ORDERED: KETOROLAC 15 MG/ML 1 ML VIAL IVP STA (14:53)
[2021-10-13] MEDS ORDERED: LIDOCAINE 1%-EPI 1:100,000 20 ML VIAL SUBMUCOSAL STA (15:29)
--- NOTE | 2021-10-13 15:29 | XR ---
EXAMINATION TYPE: XR shoulder complete LT DATE OF EXAM: 10/13/2021 COMPARISON: NONE HISTORY: Pain TECHNIQUE: Shoulder examined in 3 projections FINDINGS: The humeral head articulates with the glenoid. The acromio-clavicular junction is normal. No acute fractures or dislocations are evident. A follow up study can be performed 7-10 days from acute trauma for continued pain. IMPRESSION: 1. No acute osseous abnormality left shoulder
--- NOTE | 2021-10-13 15:29 | XR ---
EXAMINATION TYPE: XR knee complete bilateral DATE OF EXAM: 10/13/2021 3:18 PM INDICATION: Patient age:Male; 25 years old; Reason for study: fall; COMPARISON: None. TECHNIQUE: The bilateral knees were examined in 3 projections. Frontal, lateral and oblique. FINDINGS: No evidence of any acute osseous pathology, joint space narrowing, soft tissue swelling, or joint effusion is noted. IMPRESSION: 1. No acute osseous pathology.
--- NOTE | 2021-10-13 15:30 | XR ---
EXAMINATION TYPE: XR elbow complete LT DATE OF EXAM: 10/13/2021 3:18 PM INDICATION: Patient age:Male; 25 years old; Reason for study: fall; COMPARISON: None TECHNIQUE: Left elbow examined in AP, lateral, and oblique projections. FINDINGS: No evidence of any acute osseous pathology, joint dislocation, or soft tissue swelling is n oted. No evidence of joint effusion is present. IMPRESSION: No evidence of acute fracture.
[2021-10-13] MEDS ORDERED: SODIUM CHLORIDE 0.9% 1,000 ML IV ONE (16:38)
[2021-10-13 16:39] LABS: Glucose,Whole Blood 111 mg/dL (70-110)
[2021-10-13] MEDS ORDERED: ONDANSETRON 4 MG/2 ML VIAL IVP STA (16:39)
[2021-10-13] MEDS ORDERED: NALOXONE 0.4 MG/ML 1 ML VIAL IV PRN (16:51)
[2021-10-13] MEDS ORDERED: ONDANSETRON 4 MG/2 ML VIAL IVP PRN (16:51)
[2021-10-13] MEDS: SODIUM CHLORIDE 0.9% 1,000 ML IV SCH (17:45)
[2021-10-13] MEDS: PANTOPRAZOLE 40 MG/10 ML VIAL IV SCH (17:49)
[2021-10-13] MEDS: KETOROLAC 15 MG/ML 1 ML VIAL IVP SCH (19:27)
[2021-10-13 19:41] LABS: Amphetamine Screen,Urine Not Detected (NotDetected); Barbiturate Screen,Urine Not Detected (NotDetected); Benzodiazepines Screen,Urine Not Detected (NotDetected); Cocaine Screen,Urine Not Detected (NotDetected); Methadone Screen, Urine Not Detected (NotDetected); Opiate Screen,Urine Not Detected (NotDetected); Oxycodone Screen, Urine Not Detected (NotDetected); Phencyclidine Screen,Urine Not Detected (NotDetected); Tricyclic Antidepressant,Urine Not Detected (NotDetected); Urn Cannabinoid Scrn Detected (NotDetected)
[2021-10-13] MEDS ORDERED: HYDROmorphone 1 MG/ML 1 ML SYRINGE IVP PRN (20:47)
[2021-10-14] MEDS: KETOROLAC 15 MG/ML 1 ML VIAL IVP SCH ×2 (00:13→06:01)
[2021-10-14] MEDS: SODIUM CHLORIDE 0.9% 1,000 ML IV SCH ×2 (00:14→08:45)
[2021-10-14 04:35] VITALS: RESP 18
[2021-10-14 07:28] VITALS: BP 147/79; PULSE 78; TEMP 97.7
[2021-10-14] MEDS: PANTOPRAZOLE 40 MG/10 ML VIAL IV SCH (08:43)
--- NOTE | 2021-10-14 10:03 | P.GSHP ---
History of Present Illness H&P Date: 10/13/21 Please note that patient was seen and examined by Dr. White on 10/13/2021 around 5:00 PM. I personally did not see her examined this patient. I am only dictating the report per Dr. White's findings. CHIEF COMPLAINT: Fall HISTORY OF PRESENT ILLNESS: This is a 25-year-old male who fell 15-20 feet from a growth onto a concrete wall. There was loss of consciousness. There was head injury, and oxycodone tree to the anterior chest wall. Multiple abrasions of the extremities. As well as abrasion to the lip. Patient had complained of pain in the upper torso and extremities. Patient's lip laceration was sutured by nurse practitioner in the ER. Patient had some mild tachycardia and nausea on admission. This has now improved. Patient had imaging of computed tomography scan of the chest abdomen and pelvis, facial T CT and computed tomography scan of the head and C-spine which were all negative for any acute injury or fractures. Patient admitted to trauma service. PAST MEDICAL HISTORY: Hypertension PAST SURGICAL HISTORY: See list. MEDICATIONS: See list. ALLERGIES: See list. SOCIAL HISTORY: No illicit drug use. REVIEW OF SYSTEMS: CONSTITUTIONAL: Denies fever or chills. HEENT: Denies blurred vision, vision changes, or eye pain. Denies hemoptysis CARDIOVASCULAR: Denies chest pain or pressure. RESPIRATORY: No shortness of breath. GASTROINTESTINAL: See HPI for pertinent findings HEMATOLOGIC: Denies bleeding disorders. GENITOURINARY: Denies any blood in urine or increased urinary frequency. SKIN: Denies pruitis. Denies rash. PHYSICAL EXAM: VITAL SIGNS: Reviewed GENERAL: Well-developed in no acute distress. HEENT: No sclera icterus. Extraocular movements grossly intact. Moist buccal mucosa. Head is normocephalic. No nasal drainage. Lip abrasion abrasion to the left anterior neck ABDOMEN: Soft. Nondistended. Nontender NEUROLOGIC: Alert and oriented. Cranial nerves II through XII grossly intact. Skin: Multiple areas of abrasions. Facial abrasion. Abrasion to the chest wall LABORATORY DATA: WBC 11.2 Hgb 15.3 platelets 258 INR 0.9 Sodium 140 potassium 3.7 creatinine 1.08 Urine drug screen marijuana detected Alcohol level less than 10 IMAGING: Pelvic x-ray normal Chest x-ray no acute post traumatic changes Computed tomography scan of brain and C-spine no acute intracranial process. no evidence of cervical spine fracture Computed tomography scan of facial bones no evidence of acute fracture CT chest abdomen pelvis no evidence for fracture or or acute thoracic/abdominal/pelvic process Bilateral knee x-ray no acute osseous pathology Left elbow x-ray no evidence for acute fracture Left shoulder x-ray no acute osseous abnormality of the left shoulder ASSESSMENT: 1. Fall with trauma 2. Multiple areas of soft tissue contusions PLAN: -Continue to observe patient -Continue pain management -Continue IV fluids -Start regular diet Physician Revenue Coordinator note has been reviewed by physician. Signing provider agrees with the documented findings, assessment, and plan of care. Past Medical History Past Medical History: Hypertension Additional Past Medical History / Comment(s): HAVING DIFFICULTY SWALLOWING -, NEEDS LAXATIVES IN ORDER TO HAVE A BOWEL MOVEMENT, VERTIGO History of Any Multi-Drug Resistant Organisms: None Reported Past Surgical History: No Surgical Hx Reported Additional Past Surgical History / Comment(s): EGD Past Anesthesia/Blood Transfusion Reactions: No Reported Reaction Additional Past Anesthesia/Blood Transfusion Reaction / Comment(s): NO ANESTHESIA HX. Past Psychological History: No Psychological Hx Reported Smoking Status: Never smoker Past Alcohol Use History: None Reported Past Drug Use History: Marijuana Additional Drug Use History / Comment(s): MARIJUANA-LAST USED 6 DAYS AGO- WAS USING 2-3 TIMES DAILY - Past Family History Mother Family Medical History: No Reported History Medications and Allergies Home Medications Medication Instructions Recorded Confirmed Type polyethylene glycoL 3350 [Clearlax] 17 gm PO BID 04/15/20 10/13/21 History Allergies Allergy/AdvReac Type Severity Reaction Status Date / Time No Known Allergies Allergy Verified 10/13/21 13:42 Surgical - Exam Vital Signs Temp Pulse Resp BP Pulse Ox 98.7 F 112 H 18 138/77 100 10/13/21 13:39 10/13/21 13:39 10/13/21 13:39 10/13/21 13:39 10/13/21 13:39 Results - Labs 10/13/21 13:56 10/13/21 13:56 Abnormal Lab Results - Last 24 Hours (Table) 10/13/21 10/13/21 10/13/21 Range/Units 13:45 13:56 13:56 WBC 11.2 H (3.8-10.6) k/uL Carbon Dioxide 18 L (22-30) mmol/L Glucose 135 H (74-99) mg/dL POC Glucose (mg/dL) (70-110) mg/dL Calcium 10.8 H (8.4-10.2) mg/dL Total Protein 8.8 H (6.3-8.2) g/dL Albumin 5.5 H (3.5-5.0) g/dL U Marijuana (THC) Screen Detected H (NotDetected) 10/13/21 10/13/21 Range/Units 13:56 16:38 WBC (3.8-10.6) k/uL Carbon Dioxide (22-30) mmol/L Glucose (74-99) mg/dL POC Glucose (mg/dL) 146 H 111 H (70-110) mg/dL Calcium (8.4-10.2) mg/dL Total Protein (6.3-8.2) g/dL Albumin (3.5-5.0) g/dL U Marijuana (THC) Screen (NotDetected) Diabetes panel 10/13/21 Range/Units 13:56 Sodium 140 (137-145) mmol/L Potassium 3.7 (3.5-5.1) mmol/L Chloride 105 (98-107) mmol/L Carbon Dioxide 18 L (22-30) mmol/L BUN 9 (9-20) mg/dL Creatinine 1.08 (0.66-1.25) mg/dL Glucose 135 H (74-99) mg/dL Calcium 10.8 H (8.4-10.2) mg/dL AST 35 (17-59) U/L ALT 32 (4-49) U/L Alkaline Phosphatase 68 (38-126) U/L Total Protein 8.8 H (6.3-8.2) g/dL Albumin 5.5 H (3.5-5.0) g/dL Calcium panel 10/13/21 Range/Units 13:56 Calcium 10.8 H (8.4-10.2) mg/dL Albumin 5.5 H (3.5-5.0) g/dL Pituitary panel 10/13/21 Range/Units 13:56 Sodium 140 (137-145) mmol/L Potassium 3.7 (3.5-5.1) mmol/L Chloride 105 (98-107) mmol/L Carbon Dioxide 18 L (22-30) mmol/L BUN 9 (9-20) mg/dL Creatinine 1.08 (0.66-1.25) mg/dL Glucose 135 H (74-99) mg/dL Calcium 10.8 H (8.4-10.2) mg/dL Adrenal panel 10/13/21 Range/Units 13:56 Sodium 140 (137-145) mmol/L Potassium 3.7 (3.5-5.1) mmol/L Chloride 105 (98-107) mmol/L Carbon Dioxide 18 L (22-30) mmol/L BUN 9 (9-20) mg/dL Creatinine 1.08 (0.66-1.25) mg/dL Glucose 135 H (74-99) mg/dL Calcium 10.8 H (8.4-10.2) mg/dL Total Bilirubin 0.6 (0.2-1.3) mg/dL AST 35 (17-59) U/L ALT 32 (4-49) U/L Alkaline Phosphatase 68 (38-126) U/L Total Protein 8.8 H (6.3-8.2) g/dL Albumin 5.5 H (3.5-5.0) g/dL
--- NOTE | 2021-10-14 10:10 | P.DS ---
Providers Date of admission: 10/13/21 16:51 Expected date of discharge: 10/14/21 Attending physician: Kirill White Primary care physician: Phyllis Paris [facility] Course: Discharge diagnosis 1. Fall with trauma 2. Multiple areas of soft tissue contusions 3. Lip laceration status post suture placement Hospital course This is a 25-year-old male who fell 15-20 feet from a growth onto a concrete wall. There was loss of consciousness. There was head injury, and abrasion to the anterior chest wall. Multiple abrasions of the extremities. As well as laceration to the lip. Patient had complained of pain in the upper torso and ex tremities. Patient's lip laceration was sutured by nurse practitioner in the ER. Patient had some mild tachycardia and nausea on admission. This has now improved. His pain is controlled. He is tolerating diet. Afebrile. Vitals are stable. He is on room air. He is able to ambulate. CAT scan of head, C- spine, chest, abdomen, pelvis and facial CT were all negative for any fractures or acute findings. X-rays of the extremities were also negative. Patient suffered from multiple areas of soft tissue contusions. Patient is stable for discharge. Please refer to chart for any further details. Physician Medicaid Nurse note has been reviewed by physician. Signing provider agrees with the documented findings, assessment, and plan of care. Patient Condition at Discharge: Stable Plan - Discharge Summary New Discharge Prescriptions: New Ibuprofen [Motrin] 600 mg PO Q8HR PRN #30 tab PRN Reason: Pain oxyCODONE HCL [OxyIR] 5 mg PO Q6H PRN 3 Days #12 tab PRN Reason: Pain Acetaminophen Tab [Tylenol] 1,000 mg PO Q6HR PRN #30 tablet PRN Reason: Pain Continue polyethylene glycoL 3350 [Clearlax] 17 gm PO BID Discharge Medication List polyethylene glycoL 3350 [Clearlax] 17 gm PO BID 04/15/20 [History] Acetaminophen Tab [Tylenol] 1,000 mg PO Q6HR PRN #30 tablet 10/14/21 [Rx] Ibuprofen [Motrin] 600 mg PO Q8HR PRN #30 tab 10/14/21 [Rx] oxyCODONE HCL [OxyIR] 5 mg PO Q6H PRN 3 Days #12 tab 08/03/22 [Rx] Follow up Appointment(s)/Referral(s): Phyllis Paris MD [Primary Care Provider] - 1-2 days Discharge Disposition: HOME SELF-CARE
[2021-10-14 10:31] LABS: Basophils # (A) 0.03 X 10*3/uL (0.00-0.10); Basophils % (A) 0.3 %; Eosinophils # (A) 0.15 X 10*3/uL (0.04-0.35); Eosinophils % (A) 1.4 %; HCT 44.7 % (39.6-50.0); HGB 13.8 g/dL (13.0-17.0); Immature Grans, Automated 0.4 %; Lymphocytes # (A) 2.42 X 10*3/uL (0.90-5.00); Lymphocytes % (A) 22.4 %; MCH 29.4 pg (27.0-32.0); MCHC 30.9 g/dL (32.0-37.0); MCV 95.3 fL (80.0-97.0); Mean Platelet Volume 11.7 fL (9.5-12.2); Monocytes # (A) 1.16 X 10*3/uL (0.20-1.00); Monocytes % (A) 10.8 %; NRBC Per 100 WBC 0 /100 WBCS (0.0-0.0); Neutrophils # (A) 6.98 X 10*3/uL (1.80-7.70); Neutrophils % (A) 64.7 %; Platelet Count 202 X 10*3/uL (140-440); RBC 4.69 X 10*6/uL (4.40-5.60); RDW 12.8 % (11.5-14.5); WBC 10.78 X 10*3/uL (4.50-10.00)
[2021-10-14 10:38] LABS: African American GFR (CKD) 123.1 (60.0-200.0); Anion Gap 11.6 mmol/L (10.00-18.00); BUN/Creat Ratio 8.72 Ratio (12.00-20.00); Blood Urea Nitrogen 8.6 mg/dL (9.0-27.0); Calcium 9.5 mg/dL (8.7-10.3); Carbon Dioxide 22.5 mmol/L (20.0-27.5); Non-African American GFR(CKD) 106.2 (60.0-200.0)
== END 2021-10-14 10:50 | disposition home or self-care (01) ==
LOC: EC 13:38 → 6NMEDSUR 16:51
PROVIDERS: ADMIT Surgery; ATTEND Surgery
DX: S06.9X9A Unspecified intracranial injury with loss of consciousness of unspecified duration, initial encounter (principal); S01.511A Laceration without foreign body of lip, initial encounter; S20.319A Abrasion of unspecified front wall of thorax, initial encounter; S80.212A Abrasion, left knee, initial encounter; S80.211A Abrasion, right knee, initial encounter; S39.91XA Unspecified injury of abdomen, initial encounter; S59.902A Unspecified injury of left elbow, initial encounter; M25.512 Pain in left shoulder; F12.90 Cannabis use, unspecified, uncomplicated; I10 Essential (primary) hypertension; Z23 Encounter for immunization; W13.2XXA Fall from, out of or through roof, initial encounter
CPT/HCPCS: 96376 ×3; 12011; 90471; 96374; 96375; 99285; 36415; 93005; 86900; 86901; 80053; 80048; 84484; 85025 ×2; 85610; 85730; 86850; 80306; 73562; 72170; 73030; 73080; 71045; 72125; 70486; 70450; 71260; 74177; 90715; G0378 ×2; G0480; J2405; J0690; J3010; J1170 ×2; J1885 ×2; C9113 ×2; Q9967; 80320

== ENCOUNTER → 2022-09-06 | Outpatient (CLI) | payer OTHER ==
--- NOTE | 2022-09-06 16:05 | FL ---
EXAMINATION TYPE: FL UGI air w small bowel DATE OF EXAM: 09/06/2022 COMPARISON: None HISTORY: Constipation and abdominal pain TECHNIQUE: Double air contrast technique is utilized to evaluate the esophagus and upper GI. Single c ontrast technique utilized to evaluate small bowel follow-through. FINDINGS: Esophagus is normal caliber and has a normal contour to the gastroesophageal junction. Janneth roesophageal junction opens to normal caliber. No intraluminal or extramural defects are evident. No reflux was evident. There is complete stripping esophageal. The horizontal drinking position. Fundus body and antrum of the stomach well visualized. No intraluminal or extramural defects are evid ent. Contrast readily empties into a normally positioned duodenal cap and sweep. Small bowel follow-through: Following additional oral administration of contrast sequential images we re obtained over the abdomen. Real-time observation was performed. Loops of bowel appear freely mobil e. Terminal ileum is unremarkable. Transit time to the colon is 90 minutes. Fluoroscopy time: 3 minutes 32 seconds. Images: 60 IMPRESSION: 1. Normal upper GI. 2. Normal small bowel follow-through with 90 minute transit time
[2022-09-06 18:21] LABS: Gliadin AB IgA, Deaminated Negative (Negative); Gliadin AB IgA, Unit 0.6 U/mL; Gliadin AB IgG, Deaminated Negative (Negative); Gliadin AB IgG, Unit <0.4 U/mL
== END | disposition home or self-care (01) ==
LOC: RADFLMAIN 08:59
PROVIDERS: ATTEND Internal Medicine Gastroenterology
DX: R10.9 Unspecified abdominal pain (principal)
CPT/HCPCS: 74240; 74248; 83516; 85652; 86140